=== PATIENT | female | born 1955 | race Caucasian/White ===

== ENCOUNTER 2016-08-17 02:58 | Emergency (ER) | payer OTHER ==
[~2016-08-17] VITALS: Ht 154.9 cm; Wt 77.1 kg
[~2016-08-17 02:58] MED LIST: LIPITOR10 MG PO; NAPROSYN500 MG PO; PENICILLIN-VK500 M1 PO; TRICOR145 MG PO; ZOCOR10 M1
[2016-08-17 02:59] VITALS: BP 144/98
--- NOTE | 2016-08-17 03:05 | NUR ---
TO ER BED 6
--- NOTE | 2016-08-17 03:13 | NUR ---
PATIENT PRESENTS TO ED WITH C/O DIFF.BREATHING.PT STATES SHE HAD THE FLU LAST WEEK AND WAS [place] THE [facility] LAST NIGHT. PT O2 SATS IS 99% . PT DENIES N/V/D; SKIN IS PINK/WARM/DRY; AAOX4 WITH EVEN AND STEADY GAIT; LUNGS CLEAR BL; HR EVEN AND REGULAR; PT DENIES ANY FEVER, SOB, OR COUGH AT THIS TIME; PATIENT STATES PAIN OF 0/10 AT THIS TIME; VSS; PATIENT POSITIONED FOR COMFORT; HOB ELEVATED; BEDRAILS UP X2; BED DOWN. ER MD MADE AWARE OF PT STATUS.
[2016-08-17] MEDS ORDERED: ALBUTEROL SULFATE/IPRATROPIU 3 ML SOL IH ONE (03:50)
[2016-08-17] MEDS ORDERED: predniSONE 20 MG TAB PO ONE (03:50)
--- NOTE | 2016-08-17 04:42 | NUR ---
Patient discharged with v/s stable. Written and verbal after care instructions given and explained. Patient alert, oriented and verbalized understanding of instructions. Ambulatory with steady gait. All questions addressed prior to discharge. ID band removed. Patient advised to follow up with PMD. Rx of Guaiatussin and Albuterol given. Patient educated on indication of medication including possible reaction and side effects. Opportunity to ask questions provided and answered.
[2016-08-17 04:43] VITALS: BP 140/89
== END 2016-08-17 04:42 | disposition home or self-care (01) ==
LOC: MED 02:58
DX: J20.9 Acute bronchitis, unspecified (principal); Z88.0 Allergy status to penicillin; Z88.3 Allergy status to other anti-infective agents; Z88.8 Allergy status to other drugs, medicaments and biological substances; Z90.49 Acquired absence of other specified parts of digestive tract
CPT/HCPCS: 71010; 94640; 99283; J7512; J7620

== ENCOUNTER 2022-07-25 20:45 | Emergency (ER) | payer OTHER ==
[~2022-07-25] VITALS: Ht 154.9 cm; Wt 77.1 kg
[~2022-07-25 20:45] MED LIST changes: +ATOR10TA PO; +FENO145T PO; -LIPITOR10 MG PO; +NAPR-54 PO; -NAPROSYN500 MG PO; +PENI500T20 PO; -PENICILLIN-VK500 M1 PO; -TRICOR145 MG PO; -ZOCOR10 M1
[2022-07-25 21:00] VITALS: BP 134/82
--- NOTE | 2022-07-25 21:03 | NUR ---
TO LOBBY A/W BED AMBULATORY
--- NOTE | 2022-07-25 22:00 | NUR ---
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
--- NOTE | 2022-07-25 22:00 | NUR ---
NOSEBLEED AN HOUR AGO
--- NOTE | 2022-07-25 22:02 | NUR ---
PT AMBULATED TO ER BED 11
[2022-07-25] MEDS ORDERED: PHENYLEPHRINE 0.5% 15 ML BTL NS ONE (22:20)
[2022-07-25] MEDS ORDERED: PHENYLEPHRINE 1% 15 ML BTL NS ONE (22:31)
[2022-07-25 23:35] VITALS: BP 134/82
--- NOTE | 2022-07-25 23:35 | NUR ---
Patient discharged with v/s stable. Written and verbal after care instructions given and explained. Patient verbalized understanding. Ambulatory with steady gait. All questions addressed prior to discharge. Advised to follow up with PMD.
== END 2022-07-25 23:35 | disposition home or self-care (01) ==
LOC: MED 20:45
DX: R04.0 Epistaxis (principal)
CPT/HCPCS: 99281; 99282

== ENCOUNTER 2022-07-26 20:21 | Emergency (ER) | payer OTHER ==
[~2022-07-26] VITALS: Ht 154.9 cm; Wt 68.0 kg
[2022-07-26 20:32] VITALS: BP 139/84
--- NOTE | 2022-07-26 20:35 | NUR ---
TO LOBBY A/W BED AMBULATORY
--- NOTE | 2022-07-26 21:00 | NUR ---
PT TO BED #1
--- NOTE | 2022-07-26 21:23 | NUR ---
Patient resting in bed, A/Ox4, chest rise and fall symmetrical, no c/o pain or s/s of distress, patient on monitor.
[2022-07-26] MEDS ORDERED: SILVER NITRATE APPLICATOR 1 EA SWAB TP ONE (22:05)
--- NOTE | 2022-07-26 22:10 | NUR ---
Patient resting in bed, A/Ox4, chest rise and fall symmetrical, no c/o pain or s/s of distress, patient on monitor.
--- NOTE | 2022-07-26 22:48 | NUR ---
Dr. Salinas speaking with patient.
--- NOTE | 2022-07-26 23:00 | NUR ---
Patient resting in bed, A/Ox4, chest rise and fall symmetrical, no c/o pain or s/s of distress, patient on monitor.
[2022-07-26 23:02] VITALS: BP 126/73
== END 2022-07-26 23:02 | disposition home or self-care (01) ==
LOC: MED 20:21
DX: R04.0 Epistaxis (principal)
CPT/HCPCS: 99282